=== PATIENT | female | born 1965 | race Caucasian/White ===

== ENCOUNTER 2018-05-16 11:45 | Inpatient (IN) | payer BC ==
[~2018-05-16] VITALS: Ht 152.4 cm; Wt 242.7 kg
[2018-05-16] MEDS ORDERED: PIPERACILLIN-TAZOB 3.375GM 100 ML IV ONE (12:45)
[2018-05-16 12:54] LABS: Hematocrit 39.4 % (36.0-46.0); Hemoglobin 12.3 g/dL (12.2-16.2); Mean Corpuscular Hemoglobin 28.9 pg (28.0-32.0); Mean Corpuscular Hgb Conc. 31.2 g/dL (32.0-36.0); Mean Corpuscular Volume 92.6 fL (80.0-100.0); Platelet Count (auto) 328 10^3/uL (140-450); Red Blood Cells 4.26 10^6/uL (4.0-5.20); Red Cell Distribution Width 15.4 % (11.8-14.3); White Blood Cell 12.1 10^3/uL (4.4-10.8)
[2018-05-16 12:59] LABS: Band Neutrophils % (manual) 0; Basophils % (manual) 0 (0.0-2.0); Blast Cells 0; Eosinophils % (manual) 0 (0-7); Myelocytes % 0; Promyelocytes % 0; Reactive Lymphocytes 0
[2018-05-16] MEDS ORDERED: cefTRIAXone 1GM/50ML D5W 50 ML IV ONE (13:30)
[2018-05-16 13:52] LABS: Alanine Aminotransferase 46 U/L (13-56); Albumin 3.4 g/dL (3.4-5.0); Anion Gap 11 (5-15); Aspartate Aminotransferase 49 U/L (15-37); BUN/Creatinine Ratio 33.3; Blood Urea Nitrogen 26 mg/dL (7-18); Calcium 8.7 mg/dL (8.5-10.1); Carbon Dioxide 27 mmol/L (21-32); Chloride 103 mmol/L (98-107); GFR African American 99 mL/min; GFR Non-African American 82 mL/min; Glucose 123 mg/dL (74-106); Potassium 3.5 mmol/L (3.5-5.1); Sodium 141 mmol/L (136-145)
[2018-05-16 13:56] LABS: Alkaline Phosphatase 63 U/L (45-117); Bilirubin, Total 0.6 mg/dL (0.2-1.0)
[2018-05-16] MEDS ORDERED: AZITHROMYCIN 500MG/ 250ML 250 ML IV ONE (14:00)
[2018-05-16] MEDS: SODIUM CHLORIDE 0.9% 1,000 ML IV SCH (14:04)
[2018-05-16] MEDS ORDERED: NITROGLYCERIN 0.4 MG SL TAB SL PRN (14:15)
[2018-05-16] MEDS ORDERED: LACTULOSE 20Gm/30ML SOLN PO PRN (14:15)
[2018-05-16] MEDS ORDERED: ALBUTEROL SULF 2.5 MG/0.5ML(0.5%) NEB SOLN NEB PRN (14:15)
[2018-05-16] MEDS ORDERED: LORazepam 0.5 MG TAB PO PRN (14:15)
[2018-05-16] MEDS ORDERED: ACETAMINOPHEN 500 MG TAB PO PRN (14:15)
[2018-05-16] MEDS ORDERED: HYDROcodone-ACET 5/325MG TAB PO PRN (14:15)
[2018-05-16 14:21] LABS: INR 0.96 (0.9-1.15); Partial Thromboplastin Time 21.9 sec (23.78-33.04); Prothrombin Time 10.3 sec (9.27-12.13)
[2018-05-16] MEDS ORDERED: SUCR1TAB38 OR (14:27)
[2018-05-16] MEDS ORDERED: HYDROmorphone HCL 2 MG/ML VL IV PRN (14:45)
[2018-05-16] MEDS ORDERED: HYDROmorphone HCL 2 MG/ML VL IV ONE (14:45)
[2018-05-16] MEDS ORDERED: IOHEXOL 350 MG/ML 100ML IJ ONE (14:55)
[2018-05-16] MEDS: PROMETHAZINE HCL 25 MG/ML 1ML IV PRN ×2 (14:59→21:10)
[2018-05-16] MEDS: methylPREDNISolone SOD SUCC 40 MG/ML VL IV SCH (15:01)
[2018-05-16 15:07] LABS: Lymphocytes % (manual) 18 (10.0-50.0); Metamyelocytes % 1; Monocytes % (manual) 6 (0-12)
[2018-05-16] MEDS ORDERED: FLUT500M2 INH (15:12)
[2018-05-16] MEDS ORDERED: ALBU2TAB4 PO (15:12)
[2018-05-16 15:25] LABS: Amylase 31 U/L (25-115); Lipase 87 U/L (73-393)
[2018-05-16] MEDS ORDERED: DILTIAZEM HCL 120MG ER CAP PO ONE (15:30)
[2018-05-16 16:23] LABS: Lactic Acid w/Reflex 4.2 mmol/L (0.4-2.0)
[2018-05-16] MEDS ORDERED: ENOXAPARIN SOD 100 MG/1 ML SYRINGE SC SCH (17:00)
[2018-05-16] MEDS: glipiZIDE 5 MG TAB PO SCH (18:00)
[2018-05-16] MEDS: ALBUTEROL SULF 2.5 MG/0.5ML(0.5%) NEB SOLN NEB SCH (18:10)
[2018-05-16 18:31] LABS: Hematocrit 37.6 % (36.0-46.0); Hemoglobin 11.8 g/dL (12.2-16.2)
[2018-05-16] MEDS ORDERED: DIGOXIN 0.25 MG TAB PO ONE (19:00)
[2018-05-16] MEDS ORDERED: DIGOXIN 0.25 MG TAB ONE ×3 (19:30→19:33)
[2018-05-16] MEDS: OXYCODONE W/ ACETAMINOPHEN 5/325MG TABLET PO PRN (20:39)
[2018-05-16] MEDS ORDERED: ATORVASTATIN 20 MG TAB PO SCH (22:00)
[2018-05-16] MEDS: TEMAZEPAM 15 MG CAP PO PRN (22:30)
[2018-05-16] MEDS: METOPROLOL TARTRATE 25 MG TAB PO SCH (22:30)
[2018-05-16] MEDS: GABAPENTIN 300 MG CAP PO SCH (22:30)
[2018-05-16] MEDS: clonazePAM 0.5 MG TAB PO SCH (22:30)
[2018-05-16] MEDS: HYDROXYCHLOROQUINE SULFATE 200 MG TAB PO SCH (22:30)
[2018-05-16] MEDS: PREGABALIN 25 MG CAP PO SCH (22:30)
[2018-05-16] MEDS: ATORVASTATIN 20 MG TAB PO SCH (22:30)
[2018-05-16] MEDS: cloNIDine HCL 0.1 MG TAB PO SCH (22:30)
[2018-05-17] MEDS: ALBUTEROL SULF 2.5 MG/0.5ML(0.5%) NEB SOLN NEB SCH ×4 (00:07→19:24)
[2018-05-17 00:58] LABS: Hematocrit 38.2 % (36.0-46.0); Hemoglobin 12.2 g/dL (12.2-16.2)
[2018-05-17 02:54] VITALS: BP 124/76
[2018-05-17] MEDS: SODIUM CHLORIDE 0.9% 1,000 ML IV SCH (03:24)
[2018-05-17] MEDS: methylPREDNISolone SOD SUCC 40 MG/ML VL IV SCH ×2 (04:45→15:33)
[2018-05-17] MEDS: OXYCODONE W/ ACETAMINOPHEN 5/325MG TABLET PO PRN ×3 (06:30→21:53)
[2018-05-17] MEDS: GABAPENTIN 300 MG CAP PO SCH ×3 (06:30→21:51)
[2018-05-17] MEDS: PREGABALIN 25 MG CAP PO SCH ×3 (06:30→22:17)
[2018-05-17] MEDS: glipiZIDE 5 MG TAB PO SCH ×2 (07:00→18:42)
[2018-05-17] MEDS: cloNIDine HCL 0.1 MG TAB PO SCH ×3 (07:00→21:53)
[2018-05-17 07:40] VITALS: BP 152/79
[2018-05-17 08:01] LABS: Basophils # (auto) 0 uL; Basophils % (auto) 0.1 % (0.0-2.0); Eosinophils # (auto) 0 uL; Eosinophils % (auto) 0.1 % (0.0-7.0); Hematocrit 36.5 % (36.0-46.0); Hemoglobin 11.6 g/dL (12.2-16.2); Lymphocytes # (auto) 0.6 uL; Lymphocytes % (auto) 7.7 % (10.0-50.0); Mean Corpuscular Hemoglobin 29.1 pg (28.0-32.0); Mean Corpuscular Hgb Conc. 31.7 g/dL (32.0-36.0); Mean Corpuscular Volume 91.9 fL (80.0-100.0); Monocytes # (auto) 0.7 uL; Monocytes % (auto) 8.6 % (0.0-12.0); Neutrophils % (auto) 83.5 % (37.0-80.0); Nucleated Red Blood Cells % 0.1 %; Platelet Count (auto) 300 10^3/uL (140-450); Red Blood Cells 3.97 10^6/uL (4.0-5.20); Red Cell Distribution Width 15.8 % (11.8-14.3); White Blood Cell 8.4 10^3/uL (4.4-10.8)
[2018-05-17 08:12] LABS: Albumin 3.1 g/dL (3.4-5.0); Calcium 8.6 mg/dL (8.5-10.1); Potassium 3.4 mmol/L (3.5-5.1)
[2018-05-17 08:17] LABS: BUN/Creatinine Ratio 38.3; Bilirubin, Total 0.4 mg/dL (0.2-1.0); Total Protein 6.5 g/dL (6.4-8.2)
[2018-05-17 09:00] VITALS: BP 145/70
[2018-05-17] MEDS ORDERED: ENOXAPARIN SOD 40 MG/0.4 ML SYRINGE SC SCH (10:00)
[2018-05-17] MEDS ORDERED: ASPirin 81 mg TAB PO SCH (10:00)
[2018-05-17] MEDS: cefTRIAXone 1GM/50ML D5W 50 ML IV SCH (10:10)
[2018-05-17] MEDS: PANTOPRAZOLE 40 MG TAB PO SCH (10:11)
[2018-05-17] MEDS: NITROGLYCERIN 0.2MG/HR TOPICAL PATCH TD SCH (10:11)
[2018-05-17] MEDS: HYDROXYCHLOROQUINE SULFATE 200 MG TAB PO SCH ×2 (10:11→21:51)
[2018-05-17] MEDS: ISOSORBIDE MONONITRATE 60 MG TAB PO SCH (10:12)
[2018-05-17] MEDS: DIGOXIN 0.125 MG TAB PO SCH (10:13)
[2018-05-17] MEDS: clonazePAM 0.5 MG TAB PO SCH ×2 (10:13→21:52)
[2018-05-17] MEDS: METOPROLOL TARTRATE 25 MG TAB PO SCH ×2 (10:13→21:53)
[2018-05-17] MEDS: DILTIAZEM HCL 120MG ER CAP PO SCH (10:14)
[2018-05-17 11:27] LABS: Alcohol, Urine < 3.0 mg/dL (0-5); Amphetamine Screen, Urine NEGATIVE (NEGATIVE); Barbiturate Scree,Urine NEGATIVE (NEGATIVE); Benzodiazephine Screen, Urine POSITIVE (NEGATIVE); Cannabinoid Screen, Urine POSITIVE (NEGATIVE); Cocaine Screen, Urine NEGATIVE (NEGATIVE); Opiate Scree,Urine NEGATIVE (NEGATIVE); Phencyclidine Screen, Urine NEGATIVE (NEGATIVE)
[2018-05-17] MEDS ORDERED: DILT240C49 PO (12:52)
[2018-05-17] MEDS ORDERED: FLUT500M2 INH (12:52)
[2018-05-17] MEDS ORDERED: ATOR20TA PO (12:52)
[2018-05-17] MEDS ORDERED: PERCOT PO (12:52)
[2018-05-17] MEDS ORDERED: TIOTCAP IN (12:52)
[2018-05-17 13:00] VITALS: BP 100/76
[2018-05-17] MEDS ORDERED: FER325T PO (13:05)
[2018-05-17] MEDS ORDERED: INSLISPI SC (13:05)
[2018-05-17] MEDS ORDERED: METO10TA3 PO (13:05)
[2018-05-17] MEDS ORDERED: CLON0.1T PO (13:05)
[2018-05-17] MEDS ORDERED: POTA8TAB2 PO (13:05)
[2018-05-17] MEDS ORDERED: ACET-1156 PO (13:05)
[2018-05-17] MEDS ORDERED: GLIP-115 PO (13:05)
[2018-05-17] MEDS ORDERED: ISOS30TA4 PO (13:05)
[2018-05-17] MEDS ORDERED: PREG50CA PO (13:05)
[2018-05-17] MEDS ORDERED: CHOL20007 PO (13:05)
[2018-05-17] MEDS ORDERED: DOXY25TA9 PO (13:05)
[2018-05-17] MEDS ORDERED: METO25TA5 PO (13:05)
[2018-05-17] MEDS ORDERED: CLON0.5T PO (13:05)
[2018-05-17] MEDS ORDERED: ALEN70TA2 PO (13:05)
[2018-05-17] MEDS ORDERED: RANI1TAB PO (13:05)
[2018-05-17] MEDS ORDERED: OMEP20TA PO (13:05)
[2018-05-17] MEDS ORDERED: PRE1T PO (13:05)
[2018-05-17] MEDS ORDERED: GABA-339 PO (13:05)
[2018-05-17] MEDS ORDERED: FURO40TA4 PO (13:05)
[2018-05-17] MEDS ORDERED: clonazePAM 0.5 MG TAB PO PRN (13:45)
[2018-05-17] MEDS: CHOLESTYRAMINE 4 GM POWDER PO SCH ×2 (15:34→21:54)
[2018-05-17] MEDS: AZITHROMYCIN 500MG/ 250ML 250 ML IV SCH (15:43)
[2018-05-17 17:00] VITALS: BP 119/76
[2018-05-17] MEDS: FUROSEMIDE 20 MG TAB PO SCH (18:00)
[2018-05-17] MEDS: SUCRALFATE 1 GM TAB PO SCH ×2 (18:42→21:50)
[2018-05-17 21:30] VITALS: BP 134/65
[2018-05-17] MEDS: ATORVASTATIN 20 MG TAB PO SCH (21:50)
[2018-05-17] MEDS: TEMAZEPAM 15 MG CAP PO PRN (21:53)
[2018-05-18] MEDS: ALBUTEROL SULF 2.5 MG/0.5ML(0.5%) NEB SOLN NEB SCH ×3 (00:52→11:46)
[2018-05-18] MEDS: methylPREDNISolone SOD SUCC 40 MG/ML VL IV SCH ×2 (02:45→14:36)
[2018-05-18 04:54] VITALS: BP 146/79
[2018-05-18] MEDS: GABAPENTIN 300 MG CAP PO SCH ×2 (05:45→14:37)
[2018-05-18] MEDS: PREGABALIN 25 MG CAP PO SCH ×2 (05:45→14:38)
[2018-05-18] MEDS: glipiZIDE 5 MG TAB PO SCH (05:46)
[2018-05-18] MEDS: SUCRALFATE 1 GM TAB PO SCH ×2 (05:46→10:52)
[2018-05-18] MEDS: CHOLESTYRAMINE 4 GM POWDER PO SCH ×2 (05:46→14:38)
[2018-05-18] MEDS: cloNIDine HCL 0.1 MG TAB PO SCH ×2 (05:47→14:38)
[2018-05-18] MEDS: FUROSEMIDE 20 MG TAB PO SCH (05:47)
[2018-05-18 06:43] LABS: Basophils # (auto) 0 uL; Eosinophils # (auto) 0 uL; Hematocrit 32.7 % (36.0-46.0); Hemoglobin 10.6 g/dL (12.2-16.2); Lymphocytes # (auto) 0.7 uL; Lymphocytes % (auto) 8.1 % (10.0-50.0); Mean Corpuscular Hemoglobin 29.7 pg (28.0-32.0); Mean Corpuscular Hgb Conc. 32.4 g/dL (32.0-36.0); Mean Corpuscular Volume 91.7 fL (80.0-100.0); Monocytes % (auto) 11.2 % (0.0-12.0); Neutrophils # (auto) 7.4 uL; Neutrophils % (auto) 80.7 % (37.0-80.0); Nucleated Red Blood Cells % 0.1 %; Platelet Count (auto) 306 10^3/uL (140-450); Red Blood Cells 3.57 10^6/uL (4.0-5.20); Red Cell Distribution Width 14.8 % (11.8-14.3); White Blood Cell 9.1 10^3/uL (4.4-10.8)
[2018-05-18 06:48] LABS: Albumin 2.8 g/dL (3.4-5.0); Calcium 8.6 mg/dL (8.5-10.1); Potassium 3.8 mmol/L (3.5-5.1)
[2018-05-18 06:50] LABS: BUN/Creatinine Ratio 21.4; Bilirubin, Total 0.2 mg/dL (0.2-1.0)
[2018-05-18 08:00] VITALS: BP 117/66
[2018-05-18 09:00] VITALS: BP 128/77
[2018-05-18] MEDS: cefTRIAXone 1GM/50ML D5W 50 ML IV SCH (09:08)
[2018-05-18] MEDS: NITROGLYCERIN 0.2MG/HR TOPICAL PATCH TD SCH (09:11)
[2018-05-18] MEDS: HYDROXYCHLOROQUINE SULFATE 200 MG TAB PO SCH (09:11)
[2018-05-18] MEDS: ISOSORBIDE MONONITRATE 60 MG TAB PO SCH (09:12)
[2018-05-18] MEDS: METOPROLOL TARTRATE 25 MG TAB PO SCH (09:13)
[2018-05-18] MEDS: DIGOXIN 0.125 MG TAB PO SCH (09:14)
[2018-05-18] MEDS: clonazePAM 0.5 MG TAB PO SCH (09:16)
[2018-05-18] MEDS: PANTOPRAZOLE 40 MG TAB PO SCH (09:17)
[2018-05-18] MEDS: DILTIAZEM HCL 120MG ER CAP PO SCH (09:18)
[2018-05-18] MEDS ORDERED: DILTIAZEM HCL 120MG ER CAP PO SCH (10:00)
[2018-05-18] MEDS ORDERED: POTASSIUM CHL 20 Meq TABLET PO SCH (10:00)
[2018-05-18] MEDS: AZITHROMYCIN 500MG/ 250ML 250 ML IV SCH (10:52)
[2018-05-18 12:35] VITALS: BP 128/77
[2018-05-18 13:00] VITALS: BP 126/78
== END 2018-05-18 16:10 | disposition home or self-care (01) | DRG 291 ==
LOC: ER 11:45 → OVERFLOW 14:09 → TELE-WESTW 05-17 05:47
PROVIDERS: ADMIT Internal Medicine; ATTEND Family Medicine
DX: I11.0 Hypertensive heart disease with heart failure (principal); J18.9 Pneumonia, unspecified organism; J44.0 Chronic obstructive pulmonary disease with (acute) lower respiratory infection; J96.10 Chronic respiratory failure, unspecified whether with hypoxia or hypercapnia; K92.1 Melena; J44.1 Chronic obstructive pulmonary disease with (acute) exacerbation; I50.43 Acute on chronic combined systolic (congestive) and diastolic (congestive) heart failure; K57.90 Diverticulosis of intestine, part unspecified, without perforation or abscess without bleeding; E66.9 Obesity, unspecified; I50.9 Heart failure, unspecified; E03.9 Hypothyroidism, unspecified; E11.9 Type 2 diabetes mellitus without complications; E66.01 Morbid (severe) obesity due to excess calories; E78.00 Pure hypercholesterolemia, unspecified; E78.5 Hyperlipidemia, unspecified; G60.0 Hereditary motor and sensory neuropathy; K58.0 Irritable bowel syndrome with diarrhea; G71.00 Muscular dystrophy, unspecified; M32.9 Systemic lupus erythematosus, unspecified; Z74.01 Bed confinement status; Z90.710 Acquired absence of both cervix and uterus; Z99.81 Dependence on supplemental oxygen; Z88.5 Allergy status to narcotic agent; Z88.8 Allergy status to other drugs, medicaments and biological substances; Z90.49 Acquired absence of other specified parts of digestive tract
CPT/HCPCS: 36415; 71045; 71260; 74177; 80053; 80061; 80307; 82150; 82270; 82378; 82550; 82962; 83605; 83690; 83880; 84443; 84484; 85007; 85014; 85018; 85025; 85027; 85045; 85379; 85610; 85652; 85730; 86141; 87040; 87070; 87205; 87493; 87804; 93005; 93306; 93971; 94640; 94761; 96365; 96366; 96368; 96375; G0378; J0696; J2543

== ENCOUNTER 2019-07-05 18:35 | Emergency (ER) | payer BC ==
[~2019-07-05 18:35] MED LIST: ACET-1156 PO; ALBU2TAB4 PO; ALEN70TA2 PO; ATOR20TA PO; CHOL20007 PO; CLON0.1T PO; CLON0.5T PO; DILT240C49 PO; DOXY25TA9 PO; FER325T PO; FLUT500M2 INH; FURO40TA4 PO; GABA-339 PO; GLIP5TAB12 PO; INSLISPI SC; ISOS30TA4 PO; METO10TA3 PO; METO25TA5 PO; OMEP20TA PO; PERCOT PO; POTA8TAB2 PO; PRE1T PO; PREG50CA PO; SUCR1TAB38 OR; TIOTCAP IN; [UNRECOGNIZED DRUG - CODE] PO
== END 2019-07-05 19:22 | disposition left against medical advice (07) ==
LOC: EDBD 18:35 → ER 18:37
DX: K92.2 Gastrointestinal hemorrhage, unspecified (principal); D64.9 Anemia, unspecified; I82.629 Acute embolism and thrombosis of deep veins of unspecified upper extremity; D68.318 Other hemorrhagic disorder due to intrinsic circulating anticoagulants, antibodies, or inhibitors; I11.0 Hypertensive heart disease with heart failure; I50.9 Heart failure, unspecified; J44.9 Chronic obstructive pulmonary disease, unspecified; E11.9 Type 2 diabetes mellitus without complications; E78.00 Pure hypercholesterolemia, unspecified; Z90.49 Acquired absence of other specified parts of digestive tract; Z90.710 Acquired absence of both cervix and uterus; Z88.5 Allergy status to narcotic agent; Z88.8 Allergy status to other drugs, medicaments and biological substances; Z79.4 Long term (current) use of insulin; Z79.899 Other long term (current) drug therapy